=== PATIENT | male | born 1965 | race American Indian/Alaskan Native ===

== ENCOUNTER 2016-12-15 12:34 | Emergency (ER) | payer BC ==
[2016-12-15] MEDS ORDERED: FLEXERIL PO ONE (20:59)
[2016-12-15] MEDS ORDERED: MOTRIN PO ONE (20:59)
[2016-12-15 22:10] VITALS: BP 152/90
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
== END 2016-12-16 00:30 | disposition home or self-care (01) ==
LOC: ED 12:34
DX: M79.1 Myalgia (principal); Z79.82 Long term (current) use of aspirin; V49.40XA Driver injured in collision with unspecified motor vehicles in traffic accident, initial encounter; Y93.89 Activity, other specified; Y99.9 Unspecified external cause status; Y92.410 Unspecified street and highway as the place of occurrence of the external cause
CPT/HCPCS: 72100